=== PATIENT | male | born 1970 | race Caucasian/White ===

== ENCOUNTER 2017-07-04 13:38 | Emergency (ER) | payer OTHER ==
[~2017-07-04] VITALS: Ht 182.9 cm; Wt 138.3 kg
[~2017-07-04 13:38] MED LIST: ACETAMINOPHEN325 M1 PO; ALBUTEROL NEB INH; ALBUTEROL2.5 MG/31 INH; ALLEGRA180 MG PO; AMANTADINE100 M1 PO; AMARYL2 MG PO; ARMOUR THYROID30 M1 PO; ARMOUR THYROID60 M1 PO; ASPIRIN EC81 M1 PO; ASPIRIN325; BACTRIM DS TAB1 EACH PO; BENADRYL25 MG PO; BENTYL10 MG PO; BENTYL20 MG PO; BENZTROPINE ME0.5 MG PO; CALCIUM 500 +1 EAC5 PO; CLARITIN10 M2 PO; CLARITIN10 MG PO; CLONAZEPAM 0.50.5 M1 PO; CO Q10200 MG PO; COMBIVENT INH; CORTISPORIN OTI10 M2 OT; COZAAR 25MG TAB25 M1 PO; COZAAR 50 MG TA50 M1 PO; COZAAR100 MG PO; DEPAKOTE ER500 MG PO; DEPAKOTE500 MG PO; ETODOLAC 400 M400 MG; FISH OIL 1,0001 EAC5 PO; FLEXERIL PO; FLONASE 0.05%50 MCG NASAL; FOLBIC RF TABL1 EACH PO; HUMALOG100 UNIT/1 SUBQ; HUMULIN R100 UNIT/M SUBQ; HYDROCODON-ACE1 EAC7 PO; KEFLEX500 MG PO; LANTUS SUBQ; LANTUS100 UNIT/M SUBQ; LASIX 80 MG TAB80 MG PO; LATUDA80 MG; LEVAQUIN 500 M500 M2 PO; LEVEMIR SQ; LEVOTHYROXIN0.025 MG; LIPITOR10 MG PO; LISINOPRIL10 MG PO; LIVALO2 MG PO; LOVASTATIN; LOXAPINE10 MG PO; MAGNESIUM400 MG PO; METFORMIN 500500 MG PO; MIRALAX17 GM PO; MIRALAX255 GM PO; NEURONTIN 300300 M1 PO; NORCO 5-325 TA1 EAC1 PO; NORCO 5-325 TA1 EACH PO; NOVOLOG100 UNIT/1 SUBQ; OMEPRAZOLE20 MG PO; OSTERA TABLET1 EACH PO; PERCOCET 5-3251 EACH PO; PHENERGAN 25 MG25 M1 PO; POTASSIUM PO; POTASSIUM20 PO; PREDNISONE50 MG PO; PRILOSEC 20 MG20 MG PO; PROAIR HFA8.5 GM IH; PROAIR HFA8.5 GM INH; RISPERDAL 1 MG T1 MG PO; SYNTHROID25 MCG PO; TRAMADOL 50 MG50 MG PO; TRANSDERM-SCO1 PATC1 TD; TRICOR145 MG PO; ULTRACET TABLE1 EACH PO; ULTRAM 50MG TAB50 MG PO; VICODIN 5-5001 EACH PO; VITAMIN D2000 UNI1 PO; XANAX 0.25 MG0.25 MG PO; ZANTAC 150MG T150 MG PO; ZOFRAN ODT4 MG PO; ZYRTEC10 MG; symmetrel PO
[2017-07-04] MEDS ORDERED: DEPAKOTE 250MG250 M1 PO (13:58)
[2017-07-04 14:17] LABS: ABSOLUTE NEUTROPHILS 4.4 thou/uL (1.4-8.2); BASOPHILS 1.3 % (0.0-2.0); EOSINOPHILS 1.3 % (0.0-3.0); HEMATOCRIT 42.1 % (42.0-52.0); HEMOGLOBIN 15.2 gm/dL (14.0-18.0); LYMPHOCYTES 40.1 % (24.0-44.0); MCH 31.2 pg (26.0-34.0); MCHC 36.1 g/dL (28.0-37.0); MCV 86.6 fL (80.0-100.0); MONOCYTES 6.7 % (1.0-8.0); PLATELET COUNT 210 thou/uL (150-400); POLYS 50.6 % (36.0-66.0); RBC 4.86 mil/uL (4.50-6.00); RDW 13.8 % (10.5-14.5); WBC 8.6 thou/uL (4.0-11.0)
[2017-07-04 14:18] LABS: MANUAL DIFF NO
[2017-07-04 14:23] LABS: ANION GAP 8 mmol/L (7-16); BUN 7 mg/dL (7-18); CALCIUM 8.9 mg/dL (8.5-10.1); CHLORIDE 99 mmol/L (98-107); CO2 30 mmol/L (21-32); CREATININE 0.8 mg/dL (0.7-1.3); GLUCOSE 190 mg/dL (74-106); POTASSIUM 3.3 mmol/L (3.5-5.1); SODIUM 137 mmol/L (136-145)
[2017-07-04 14:29] LABS: ALBUMIN 3.9 g/dL (3.4-5.0); ALKALINE PHOSPHATASE 92 U/L (46-116); DIRECT BILIRUBIN < 0.1 mg/dL (<0.1-0.3); SGOT 50 U/L (15-37); SGPT 47 U/L (30-65); TOTAL BILIRUBIN 0.5 mg/dL (<0.1-1.0); TOTAL PROTEIN 7.9 g/dL (6.4-8.2)
[2017-07-04 14:31] LABS: APTT 25.5 Seconds (24.5-32.8); PROTIME 10.1 Seconds (9.3-11.4)
[2017-07-04] MEDS ORDERED: PHENERGAN 25 MG25 M1 PO (15:33)
[2017-07-04] MEDS ORDERED: ZOFRAN ODT4 MG PO (15:33)
[2017-07-04] MEDS ORDERED: PROMS25 WY RECTAL (15:33)
[2017-07-04] MEDS ORDERED: PRILOSEC 20 MG20 MG PO (15:59)
[2017-07-04 16:23] VITALS: BP 117/58
== END 2017-07-04 16:24 | disposition home or self-care (01) ==
LOC: ER 13:38
PROVIDERS: Emergency Medicine
DX: K21.9 Gastro-esophageal reflux disease without esophagitis (principal); K92.2 Gastrointestinal hemorrhage, unspecified; E87.6 Hypokalemia; I10 Essential (primary) hypertension; E11.9 Type 2 diabetes mellitus without complications; E78.5 Hyperlipidemia, unspecified; F31.9 Bipolar disorder, unspecified; E03.9 Hypothyroidism, unspecified; Z79.4 Long term (current) use of insulin; Z88.1 Allergy status to other antibiotic agents; Z91.040 Latex allergy status; Z88.6 Allergy status to analgesic agent; Z88.8 Allergy status to other drugs, medicaments and biological substances